=== PATIENT | male | born 1965 | race Caucasian/White ===

== ENCOUNTER 2020-08-02 07:14 | Inpatient (IN) ==
--- NOTE | 2020-08-02 07:28 | Emergency Department Note ---
History of Present Illness General Chief complaint: Hip Pain Stated complaint: FALL/LT HIP INJURY Time Seen by Provider: 08/02/20 07:21 History of Present Illness This is a 54-year-old male that presents to the emergency department via ambulance with complaints of "fall, left hip injury". The patient notes that earlier today around 615am he was ambulating out of his hotel when he notes that he slipped on ice landing on the left hip. He denies striking the head or loss of consciousness. He states that the pain is in the left medial hip region. It is worse with movement. He cannot ambulate secondary to pain. He states that his past medical history is significant for that of appendectomy. No other pe rtinent medical history or allergies. He rates the overall discomfort at this time 03/18. In route he did receive 10 mg of morphine IV and 4 mg of IV Zofran. Patient is in the area for work and is from [place]. Home Medications Medication Instructions Recorded Confirmed Type magnesium oxide 400 mg PO DAILY 08/02/20 08/02/20 History [id number]-9-[id number]-cvwc oil 1 cap PO DAILY 08/02/20 08/02/20 History [[place]-3 (with dpa)] Allergies Allergy/AdvReac Type Severity Reaction Status Date / Time No Known Allergies Allergy Unverified 08/02/20 08:32 Past Med/Surg History Medical History No pertinent past medical history Surgical History History of appendectomy Family History (Updated 08/02/20 @ 10:22 by Wally Holcomb PA-C) Denies family history of Diabetes Coronary heart disease Heart disease Hypertension Social History (Updated 08/02/20 @ 10:21 by Wally Holcomb PA-C) Smoking Status: Never smoker Tobacco Type: Smokeless Tobacco (Dip or Chew) Do You Dip or Chew Tobacco: Yes (1 can q 2-3days); Tobacco Cessation Education Requested by Patient: No Hx Alcohol Use: No Hx Substance Use: No Preferred Language: Nigerien Communication Ability: Effective Certified Massage Therapist Required: No Beliefs That Will Affect Care: None marital status: Current Living Situation: Spouse current occupational status: employed Other Information That Helps Us Care for You: No Feels Safe at Home: Yes Safety Concerns: Feels Safe At This Time Assistive Devices: None Review of Systems A total of 10 systems reviewed and were otherwise negative Physical Exam Vital Signs Vital Signs - 24 hr 08/02/20 07:24 08/02/20 08:46 Temperature 37.1 C Temperature Source Oral Pulse Rate 69 Pulse Rate [Right Finger] 65 Respiratory Rate 20 19 Respiratory Effort / Characteristics Non-Labored Spontaneous Non-Labored Spontaneous Respiratory Depth Normal Normal Blood Pressure 137/69 Blood Pressure [Left Radial Artery] 138/73 Blood Pressure Mean 91 Blood Pressure Mean [Left Radial Artery] 94 Blood Pressure Position Lying Pulse Oximetry 100 98 Oxygen Delivery Method Room Air Room Air Sepsis Recent Fever Within 48 Hours No Sepsis New/Unexplained Change in Mental Status N/A Sepsis Action Taken by Nursing No Action Required VITAL SIGNS - Vital signs and nursing notes were reviewed. Stable and afebrile. GENERAL -54-year-old male appearing his stated age who is in no acute distress. Communicates well with provider and answers questions appropriately. SKIN - Without rashes. No meningeal or petechial rash. HEAD - NC/AT. EYES - PERRL with EOMI bilaterally. Sclera anicteric. EARS - No deformities of external structures noted on gross examination bilaterally. NOSE - Midline and without cyanosis. NECK - Neck with FROM. No nuchal rigidity. LUNGS - Chest wall symmetric without accessory muscle use, intercostals retractions, or central cyanosis. Normal vesicular breath sounds CTA B/L. No wheezes, rales, or rhonchi appreciated. CARDIAC - RRR with S1/S2. No murmur, rubs, or gallops appreciated. EXTREMITIES - No clubbing or peripheral cyanosis. The patient is tender overlying the left greater trochanter and left medial proximal thigh region. No deformity or step-off. +5/5 strength noted in UE/LE bilaterally. NEUROLOGIC - Cranial nerves II through XII grossly intact. Patient is neurovascularly intact in the left lower extremity distal to the injury. Patellar reflexes +2/4. PSYCH - A&O, and cooperates fully with examiner. Pt is very pleasant and interacts well with examiner. Course Administered Medications Sodium Chloride (Nss 1000ml) 1,000 mls @ 250 mls/hr IV .Q4H MICHELLE Stop: 08/02/20 12:59 Last Admin: 08/02/20 08:53 Dose: 250 mls/hr Documented by: [id number] Discontinued Medications Hydromorphone HCl (Hydromorphone Inj 0.5 Mg/0.5 Ml Syr) 0.5 mg IV NOW STA Stop: 08/02/20 07:31 Last Admin: 08/02/20 07:39 Dose: 0.5 mg Documented by: [id number] Hydromorphone HCl (Hydromorphone Inj 0.5 Mg/0.5 Ml Syr) 0.5 mg IV NOW STA Stop: 08/02/20 08:32 Last Admin: 08/02/20 08:38 Dose: 0.5 mg Documented by: [id number] Hydromorphone HCl (Hydromorphone Inj 0.5 Mg/0.5 Ml Syr) 0.5 mg IV Q30M PRN PRN Reason: pain Stop: 08/16/20 08:59 Last Admin: 08/02/20 11:21 Dose: 0.5 mg Documented by: [id number] Admin: 08/02/20 10:38 Dose: 0.5 mg Documented by: [id number] Admin: 08/02/20 10:13 Dose: 0.5 mg Documented by: [id number] Medical Decision Making Laboratory Data Result diagrams: 08/02/20 07:38 08/02/20 07:38 Lab Results 08/02/20 08/02/20 08/02/20 Range/Units 07:38 07:38 07:38 WBC 4.89 (4.8-10.8) K/uL RBC 4.96 (4.7-6.1) M/uL Hgb 14.7 (14.0-18.0) g/dL Hct 42.0 (42-52) % MCV 84.7 (80-100) fL MCH 29.6 (25-34) pg MCHC 35.0 (32-36) g/dL RDW Std Deviation 42.3 (36.4-46.3) fL RDW Coeff of Lyndsay 13.7 (11.5-14.5) % Plt Count 223 (130-400) K/uL MPV 11.4 H (7.4-10.4) fL Immature Gran % (Auto) 0.2 % Neut % (Auto) 61.0 % Lymph % (Auto) 29.0 % [place] % (Auto) 8.4 % Eos % (Auto) 1.4 % Baso % (Auto) 0.0 % Neut # (Auto) 2.98 (1.4-6.5) K/uL Lymph # (Auto) 1.42 (1.2-3.4) K/uL [place] # (Auto) 0.41 (0.11-0.59) K/uL Eos # (Auto) 0.07 (0-0.5) K/uL Baso # (Auto) 0.00 (0-0.2) K/uL Immature Gran # (Auto) 0.01 (0.00-0.02) K/uL PT 10.1 (9.0-12.0) Seconds INR 1.0 (0.9-1.1) APTT 23.1 (21.0-31.0) Seconds PTT Ratio 0.9 Sodium 140 (136-145) mmol/L Potassium 3.4 L (3.5-5.1) mmol/L Chloride 106 (98-107) mmol/L Carbon Dioxide 29 (21-32) mmol/L Anion Gap 5.0 (3-11) BUN 13 (7-18) mg/dl Creatinine 1.12 (0.6-1.4) mg/dl Est Cr Clr Drug Dosing 85.1 ml/min Est GFR ( Amer) 84.7 Est GFR (Non-Af Amer) 73.0 BUN/Creatinine Ratio 11.2 (10-20) Glucose 90 (70-99) mg/dl Calcium 9.5 (8.5-10.1) mg/dl Total Bilirubin 0.4 (0.2-1) mg/dl AST 8 L (15-37) U/L ALT 26 (12-78) U/L Alkaline Phosphatase 70 (45-117) U/L Total Protein 7.3 (6.4-8.2) gm/dl Albumin 3.8 (3.4-5.0) gm/dl Globulin 3.5 (2.5-4.0) gm/dl Albumin/Globulin Ratio 1.1 (0.9-2) COVID-19 Eval Order SARS-CoV-2, RNA, NAAT (NEGATIVE) 08/02/20 08/02/20 Range/Units 09:27 09:27 WBC (4.8-10.8) K/uL RBC (4.7-6.1) M/uL Hgb (14.0-18.0) g/dL Hct (42-52) % MCV (80-100) fL MCH (25-34) pg MCHC (32-36) g/dL RDW Std Deviation (36.4-46.3) fL RDW Coeff of Lyndsay (11.5-14.5) % Plt Count (130-400) K/uL MPV (7.4-10.4) fL Immature Gran % (Auto) % Neut % (Auto) % Lymph % (Auto) % [place] % (Auto) % Eos % (Auto) % Baso % (Auto) % Neut # (Auto) (1.4-6.5) K/uL Lymph # (Auto) (1.2-3.4) K/uL [place] # (Auto) (0.11-0.59) K/uL Eos # (Auto) (0-0.5) K/uL Baso # (Auto) (0-0.2) K/uL Immature Gran # (Auto) (0.00-0.02) K/uL PT (9.0-12.0) Seconds INR (0.9-1.1) APTT (21.0-31.0) Seconds PTT Ratio Sodium (136-145) mmol/L Potassium (3.5-5.1) mmol/L Chloride (98-107) mmol/L Carbon Dioxide (21-32) mmol/L Anion Gap (3-11) BUN (7-18) mg/dl Creatinine (0.6-1.4) mg/dl Est Cr Clr Drug Dosing ml/min Est GFR ( Amer) Est GFR (Non-Af Amer) BUN/Creatinine Ratio (10-20) Glucose (70-99) mg/dl Calcium (8.5-10.1) mg/dl Total Bilirubin (0.2-1) mg/dl AST (15-37) U/L ALT (12-78) U/L Alkaline Phosphatase (45-117) U/L Total Protein (6.4-8.2) gm/dl Albumin (3.4-5.0) gm/dl Globulin (2.5-4.0) gm/dl Albumin/Globulin Ratio (0.9-2) COVID-19 Eval Order Covid19 [facility] SARS-CoV-2, RNA, NAAT NEGATIVE (NEGATIVE) Imaging Data Radiologist's Impression: CT pelvis wo con CT DOSE: 632.94 mGy.cm CLINICAL HISTORY: Left hip pain status post trauma TECHNIQUE: Helical images were acquired in the transverse plane. Sagittal coronal reformatted images were acquired. A dose lowering technique was utilized adhering to the principles of ALARA. COMPARISON STUDY: None. FINDINGS: There is no pelvic ascites. There is no pathologic pelvic lymphadenopathy. There is no evidence of acute diverticulitis. There is no SI joint diastases. There is no symphysis diastases. There is an acute subcapital left hip fracture. IMPRESSION: Acute subcapital left hip fracture. ACT 112: Negative or not required by law. Electronically signed by: Viktor Lugo M.D. 08/02/2020 8:09 AM XR femur LT 2V routine CLINICAL HISTORY: Left leg pain status post trauma COMPARISON: None. DISCUSSION: There is an acute subcapital left hip fracture. There is no dislocation. No additional fractures are visualized. IMPRESSION: Subcapital left hip fracture. ACT 112: Negative or not required by law. Electronically signed by: Viktor Lugo M.D. 08/02/2020 8:32 AM SINGLE VIEW CHEST CLINICAL HISTORY: Preoperative examination. Hip fracture. FINDINGS: 2 AP, portable, supine chest radiographs are obtained. No prior studies are available for comparison at the time of dictation. The examination is mildly degraded by portable technique and patient rotation. The heart is top normal for projection. There are calcified mediastinal and hilar lymph nodes. The lungs and pleural spaces are clear. No pneumothorax is seen. The bony thorax is grossly intact. IMPRESSION: No active disease in the chest. ACT 112: Negative or not required by law. Electronically signed by: Tolu Kearney M.D. 08/02/2020 8:32 AM [facility] Narrative Patient was seen and evaluated as above in room C 11. Review was performed of nursing notes and vital signs. After obtaining a thorough history and physical examination the above work up was performed. Patient presents to us today status post mechanical fall now with left hip pain. On examination he is tender overlying left hip. No other injury identified on exam. He is neurovascularly intact. Options of care were discussed with the patient. IV access established. Labs were drawn. A CT of the pelvis and x-ray of the femur were obtained. The p terrell has an acute subcapital left hip fracture. This is clinically correlated on examination. This is a closed fracture. I discussed the presentation with the orthopedist, Dr. Dc. Plan is for surgical intervention. He will be admitted for further evaluation and management. While here he was given IV Dilaudid for pain. I also began hydration. We will keep him n.p.o. for potential surgical intervention. Please refer to further documentation regarding his stay. While in the department, I personally reevaluated the patient several times and after the pain medication was resting comfortably. Patient was educated upon todays findings. He was educated upon the plan. Patient happy with plan of care. GCS: 15 In the evaluation and treatment of this patient, the following differential diagnoses were considered: Hip Fracture, Hip Dislocation, Greater Trochanteric Bursitis, Musculoskeletal Pain, Lumbar Radiculopathy, among others. Impression & Plan Subcapital fracture of left hip Discharge Plan Visit Data Chief Complaint: Hip Pain Stated Complaint: FALL/LT HIP INJURY ED Provider: José Miguel Bowling ED Midlevel Provider: Hans Sanabria Discharge Problem: Subcapital fracture of left hip Patient Disposition: Admitted As Inpatient Condition: Good Discharge Instructions Interventions: ED Discharge Assessment Last Done: 08/02/20 10:45 Discharge Problem: Subcapital fracture of left hip Qualifiers: Encounter type: initial encounter Fracture type: closed Qualified Code(s): S72 .012A - Unspecified intracapsular fracture of left femur, initial encounter for closed fracture
[2020-08-02] MEDS ORDERED: HYDROmorphone INJ 0.5 MG/0.5 ML SYR IV STA ×2 (07:30→08:31)
[2020-08-02 07:58] LABS: Eosinophils # (auto) 0.07 K/uL (0-0.5); Eosinophils % (auto) 1.4 %; Hemoglobin 14.7 g/dL (14.0-18.0); Immature Granulocytes # (auto) 0.01 K/uL (0.00-0.02); Immature Granulocytes % (auto) 0.2 %; Lymphocytes # (auto) 1.42 K/uL (1.2-3.4); Mean Corpuscular Hemoglobin 29.6 pg (25-34); Mean Corpuscular Volume 84.7 fL (80-100); Mean Platelet Volume 11.4 fL (7.4-10.4); Monocytes # (auto) 0.41 K/uL (0.11-0.59); Monocytes % (auto) 8.4 %; Neutrophils # (auto) 2.98 K/uL (1.4-6.5); Platelet Count 223 K/uL (130-400); RDW Coefficient of Variation 13.7 % (11.5-14.5); RDW Standard Deviation 42.3 fL (36.4-46.3); Red Blood Count 4.96 M/uL (4.7-6.1); White Blood Count 4.89 K/uL (4.8-10.8)
--- NOTE | 2020-08-02 08:10 | CT Scan Report ---
CT pelvis wo con CT DOSE: 632.94 mGy.cm CLINICAL HISTORY: Left hip pain status post trauma TECHNIQUE: Helical images were acquired in the transverse plane. Sagittal coronal reformatted images were acquired. A dose lowering technique was utilized adhering to the principles of ALARA. COMPARISON STUDY: None. FINDINGS: There is no pelvic ascites. There is no pathologic pelvic lymphadenopathy. There is no evidence of acute diverticulitis. There is no SI joint diastases. There is no symphysis diastases. There is an acute subcapital left hip fracture. IMPRESSION: Acute subcapital left hip fracture. ACT 112: Negative or not required by law. Electronically signed by: Viktor Lugo M.D. 08/02/2020 8:09 AM
[2020-08-02 08:24] LABS: Albumin Level 3.8 gm/dl (3.4-5.0); BUN Creatinine Ratio 11.2 (10-20); Calcium 9.5 mg/dl (8.5-10.1); Creatinine Clr Calc Pharmacy 85.1 ml/min; Est GFR (African American) 84.7; Potassium 3.4 mmol/L (3.5-5.1)
[2020-08-02 08:27] LABS: Albumin Globulin Ratio 1.1 (0.9-2); Bilirubin,Total 0.4 mg/dl (0.2-1); Globulin 3.5 gm/dl (2.5-4.0); Total Protein 7.3 gm/dl (6.4-8.2)
--- NOTE | 2020-08-02 08:33 | XRay Report ---
XR femur LT 2V routine CLINICAL HISTORY: Left leg pain status post trauma COMPARISON: None. DISCUSSION: There is an acute subcapital left hip fracture. There is no dislocation. No additional fr actures are visualized. IMPRESSION: Subcapital left hip fracture. ACT 112: Negative or not required by law. Electronically signed by: Viktor Lugo M.D. 08/02/2020 8:32 AM
--- NOTE | 2020-08-02 08:33 | XRay Report ---
SINGLE VIEW CHEST CLINICAL HISTORY: Preoperative examination. Hip fracture. FINDINGS: 2 AP, portable, supine chest radiographs are obtained. No prior studies are available for c omparison at the time of dictation. The examination is mildly degraded by portable technique and casey ent rotation. The heart is top normal for projection. There are calcified mediastinal and hilar lymp h nodes. The lungs and pleural spaces are clear. No pneumothorax is seen. The bony thorax is grossly intact. IMPRESSION: No active disease in the chest. ACT 112: Negative or not required by law. Electronically signed by: Tolu Kearney M.D. 08/02/2020 8:32 AM
[2020-08-02] MEDS ORDERED: SODIUM CHLORIDE 0.9% 1000ML 1,000 ML IV SCH (09:00)
[2020-08-02 09:55] LABS: Partial Thromboplastin Ratio 0.9; Partial Thromboplastin Time 23.1 Seconds (21.0-31.0); Prothrombin Time 10.1 Seconds (9.0-12.0)
[2020-08-02] MEDS: HYDROmorphone INJ 0.5 MG/0.5 ML SYR IV PRN ×3 (10:13→11:21)
--- NOTE | 2020-08-02 10:13 | History & Physical Report ---
Date of Service August 02, 2020 Assessment & Plan (1) Subcapital fracture of left hip: Very healthy 54-year-old white male who we will admit today and undergo surgery of the left hip either this evening or tomorrow to likely be done by Dr. Dc, if not one of his partners. Patient did eat breakfast this morning. Admission orders are done. He is on bedrest. Pain medication as ordered. We will continue with the Dilaudid for breakthrough pain and he will can take oxycodone as needed. Continue with ice to the affected side as needed for pain and swelling. Patient is from [place] and his boss is with him today. They are inquiring about how soon he will be safe to travel back to [place] after his surgery and if any medical arrangements can be arranged for transport back there. History of Present Illness Chief Complaint: Left hip pain x several hours Primary Care Provider: NO PCP 54-year-old white male with no significant past medical history who complains of left hip pain times several hours. He states this morning he left his hotel and slipped on some ice falling and landing on the left hip. He says that this is the worst pain that he is ever experienced. He was unable to get up and was brought to the emergency room via ambulance. Pain is worse with standing and moving and is relieved by rest. He is originally from [place] and is in town on business. He says he supposed to be here for a another week or 2. Dr. Dc was consulted after x-ray revealed a left subcapital hip fracture. Patient denies any chest pain, shortness of breath, or difficulty breathing. No fever, chills, or cough. He denies any knee or lower leg pain. Allergies Allergy/AdvReac Type Severity Reaction Status Date / Time No Known Allergies Allergy Unverified 08/02/20 08:32 Home Medications Medication Instructions Recorded Confirmed Type magnesium oxide 400 mg PO DAILY 08/02/20 08/02/20 History ltluo-7-oiy-rnn-oie-rehb oil 1 cap PO DAILY 08/02/20 08/02/20 History [[place]-3 (with dpa)] Past Med/Surg History Medical History No pertinent past medical history Surgical History History of appendectomy Family History (Updated 08/02/20 @ 10:22 by Wally Holcomb PA-C) Denies family history of Diabetes Coronary heart disease Heart disease Hypertension Social History (Updated 08/02/20 @ 10:21 by Wally Holcomb PA-C) Smoking Status: Never smoker Tobacco Type: Smokeless Tobacco (Dip or Chew) Hx Alcohol Use: No marital status: current occupational status: employed Feels Safe at Home: Yes Review of Systems All systems reviewed & are unremarkable except as noted in HPI & below. Physical Exam Constitutional WD/WN, vitals as above well groomed and comfortable Eyes PERRL, conjunctivae normal, anicteric sclerae ENMT external ear and nose normal, oropharynx normal Neck normal visual inspection and trachea midline Respiratory normal respiratory effort; no respiratory distress and no labored breathing Cardiovascular Rate/Rhythm: regular rate and regular rhythm Gastrointestinal (Abdomen) Inspection/Auscultation: abdomen normal to inspection Percussion/Palpation: abdomen soft; abdomen nontender Musculoskeletal He is nontender to palpation along the left greater trochanter bursa. Left hip is slightly externally rotated. He has sensation to touch grossly intact bilateral lower extremities. He is able to move his left and right leg symmetrically at the foot and ankle without discomfort. Skin no rashes, warm and dry normal turgor Neurologic normal touch/pain/proprioception, moves all extremities and awake Psychiatric A+Ox3, euthymic affect Orientation: cooperative Apperance: appropriately groomed Eye Contact: good eye contact Speech: normal rate/rhythm/volume of speech Insight: good insight Results & Data Results & Data Laboratory Results . Diagnostic Findings . PG Care Time/CCT Total # of Minutes Spent Total Time Spent with Patient: Total time spent is greater than 50% in coordination of care (as documented) at patient's floor/unit and/or counseling patient: Coding Level of Care Code 07016 Initial Inpt Care Lvl 3 (57 - DECISION FOR SURGERY) Diagnoses Subcapital fracture of left hip S72.012A Encounter type: initial encounter Fracture type: closed (1) Subcapital fracture of left hip Encounter type: initial encounter Fracture type: closed Qualified Code(s): S72.012A - Unspecified intracapsular fracture of left femur, initial encounter for closed fracture
[2020-08-02] MEDS ORDERED: oxyCODONE HCL IR 5 MG TAB (IMMEDIATE RELEASE) PO PRN (11:18)
[2020-08-02] MEDS ORDERED: HYDROmorphone INJ 0.5 MG/0.5 ML SYR IV PRN (11:41)
[2020-08-02] MEDS: KETOROLAC 30 MG/ML VIAL IV SCH ×2 (13:07→21:19)
[2020-08-02] MEDS: D5W AND LACTATED RINGERS 1,000 ML IV SCH ×2 (13:11→22:54)
[2020-08-02] MEDS: HYDROmorphone INJ 1 MG/ML SYRINGE IV PRN ×3 (14:08→22:53)
[2020-08-02] MEDS: oxyCODONE HCL IR 5 MG TAB (IMMEDIATE RELEASE) PO PRN ×2 (17:19→21:20)
[2020-08-03] MEDS: HYDROmorphone INJ 1 MG/ML SYRINGE IV PRN ×5 (00:55→22:18)
[2020-08-03] MEDS: KETOROLAC 30 MG/ML VIAL IV SCH ×4 (05:46→23:07)
[2020-08-03] MEDS ORDERED: ceFAZolin 2000MG 2,000 MG/15 ML SYR IV SCH (06:00)
--- NOTE | 2020-08-03 07:00 | Orthopedic Progress Note ---
Date of Service August 03, 2020 Assessment & Plan (1) Subcapital fracture of left hip: I went over the diagnosis and treatment options with him at bedside. I do recommend surgical fixation. I would likely do cannulated screw fixation. He understands the risk, benefits, and alternatives to procedures like to proceed. Questions are answered at bedside today. Time was spent describing the procedure and postoperative expectations. We will likely do the procedure later this afternoon. He is currently n.p.o. Curtis Camara was seen and examined at bedside this morning. Overall he is doing fairly well. His pain is better controlled. He still unable to sit up. He is looking forward to having his hip fixed today. He has no other complaints.. Review of Systems All systems reviewed & are unremarkable except as noted in HPI & below. Physical Exam On physical examination of his hip, his leg lengths are equal. He has signif icant pain with logroll of his left leg. Results & Data Results & Data Laboratory Results . Diagnostic Findings X-rays and CT scan reviewed of the left hip do show a mildly displaced left femoral neck fracture.. PG Care Time/CCT Total # of Minutes Spent Total Time Spent with Patient: Total time spent is greater than 50% in coordination of care (as documented) at patient's floor/unit and/or counseling patient: Coding Level of Care Code 55328 Subseq Hosp Care Lvl 3 (57 - DECISION FOR SURGERY) Diagnoses Subcapital fracture of left hip S72.012A Encounter type: initial encounter Fracture type: closed (1) Subcapital fracture of left hip Encounter type: initial encounter Fracture type: closed Qualified Code(s): S72.012A - Unspecified intracapsular fracture of left femur, initial encounter for closed fracture
[2020-08-03] MEDS: D5W AND LACTATED RINGERS 1,000 ML IV SCH (08:20)
[2020-08-03] MEDS: oxyCODONE HCL IR 5 MG TAB (IMMEDIATE RELEASE) PO PRN ×2 (09:58→19:41)
[2020-08-03] MEDS ORDERED: ONDANSETRON INJ 2 MG/ML 2 ML VIAL IV PRN ×2 (13:08→16:49)
[2020-08-03] MEDS ORDERED: ATROPINE SULFATE 0.1 MG/ML 10ML SYR IV PRN (13:08)
[2020-08-03] MEDS ORDERED: PHENYLEPHRINE 100MCG/ML 5ML SYR IV PRN (13:08)
[2020-08-03] MEDS ORDERED: MEPERIDINE HCL 25 MG/ML CARP/VIAL IV PRN (13:08)
[2020-08-03] MEDS ORDERED: ePHEDrine sulfate 50 MG/ML AMP IV PRN (13:08)
[2020-08-03] MEDS ORDERED: fentaNYL citrate 100 MCG/2 ML VIAL IV PRN (13:08)
[2020-08-03] MEDS ORDERED: LABETALOL HCL IV 5 MG/ML 20ML IV PRN (13:08)
[2020-08-03] MEDS ORDERED: HYDROmorphone INJ 1 MG/ML SYRINGE IV PRN (13:08)
[2020-08-03] MEDS ORDERED: fentaNYL citrate 100 MCG/2 ML VIAL ONE (13:50)
[2020-08-03] MEDS ORDERED: MIDAZOLAM HCL 1 MG/ML 2ML VIAL ONE ×2 (13:50→14:06)
--- NOTE | 2020-08-03 14:06 | Anesthesiology Consultation ---
Date of Service August 03, 2020 Covid 19 negative on 08/02/20 Assessment & Plan (1) Encounter for pre-operative examination: Chart Review Chart Review: Acceptable Risk for Surgery and Patient NOT seen in Pre Admission Testing Consults Requested none History Surgery Operation Date: 08/03/20 14:35 Proposed Procedures p Left Hip DHS Versus Percutaneous Pinning - Kuldeep Dc, DO Height/Weight Height: 5 ft 10 in Weight: 92 kg Allergies Allergy/AdvReac Type Severity Reaction Status Date / Time No Known Allergies Allergy Unverified 08/02/20 08:32 Medications Home Medications Medication Instructions Recorded Confirmed Last Taken magnesium oxide 400 mg PO DAILY 08/02/20 08/02/20 08/01/20 lxvys-0-dfw-hax-ohx-ivkw oil 1 cap PO DAILY 08/02/20 08/02/20 08/02/20 [[place]-3 (with dpa)] Active Medications Generic Name Dose Route Start Last Admin Trade Name Freq PRN Reason Stop Dose Admin Hydromorphone HCl 1 mg 08/02/20 12:41 08/03/20 11:51 Hydromorphone Inj 1 Mg/Ml Syringe IV 08/16/20 11:40 1 mg Q2H PRN Administration pain Protocol Dextrose/Lactated Ringer's 1,000 mls @ 100 mls/hr 08/02/20 12:45 08/03/20 08:20 D5w And Lactated Ringers IV 09/01/20 12:44 100 mls/hr .Q10H MICHELLE Administration Ketorolac Tromethamine 30 mg 08/02/20 13:00 08/03/20 13:11 Ketorolac 30 Mg/Ml Vial IV 08/07/20 12:59 30 mg Q8H MICHELLE Administration Oxycodone HCl 10 mg 08/02/20 12:41 08/03/20 09:58 Oxycodone Hcl Ir 5 Mg Tab (Immediate Release) PO 08/16/20 11:17 10 mg Q4H PRN Administration Pain NPO Date Last Intake of Fluids: 08/02/20 Time Last Intake of Fluids: 21:00 Last Intake of Fluids Comment: sip of water with meds at 1100 Date Last Intake of Solids: 08/02/20 Time Last Intake of Solids: 18:00 Past Medical History Medical History No pertinent past medical history Tobacco chew use Past Family History Family History Denies family history of Diabetes Coronary heart disease Heart disease Hypertension Past Surgical History Surgical History History of appendectomy Social History Smoking Status: Never smoker tobacco type: smokeless tobacco Do You Dip or Chew Tobacco: Yes (1 can q 2-3days) Hx Alcohol Use: No Hx Substance Use: No Physical Exam Vital Signs Last Vital Signs Temp 36.9 C 08/03/20 13:56 Pulse 68 08/03/20 13:56 Resp 18 08/03/20 13:56 BP 148/74 H 08/03/20 13:56 Pulse Ox 98 08/03/20 13:56 Testing Laboratory Results 08/02/20 07:38 08/02/20 07:38 PT 10.1 Seconds (9.0-12.0) 08/02/20 07:38 INR 1.0 (0.9-1.1) 08/02/20 07:38 APTT 23.1 Seconds (21.0-31.0) 08/02/20 07:38 Blood Type B Positive 08/02/20 14:44 Antibody Screen NEGATIVE 08/02/20 14:44 Electrocardiogram Date: 08/03/20 Findings: + NSST changes and + SB @ (57)
[2020-08-03] MEDS ORDERED: BUPIVACAINE 0.5 % 5 MG/1 ML PF 10ML VIAL ONE (14:17)
[2020-08-03] MEDS ORDERED: KETAMINE 50 MG/5 ML SYRINGE ONE (14:18)
[2020-08-03] MEDS ORDERED: PROPOFOL IV EMULSION 10 MG/ML 20 ML VIAL IV ONE (14:57)
[2020-08-03] MEDS ORDERED: ONDANSETRON INJ 2 MG/ML 2 ML VIAL ONE (14:58)
[2020-08-03] MEDS ORDERED: ePHEDrine sulfate 50 MG/ML SYR ONE (14:58)
--- NOTE | 2020-08-03 15:33 | Fluoroscopy Report ---
FL hip LT 2-3V CLINICAL HISTORY: LT HIP DHS VS PERCUTANEOUS PINNING. Left hip fracture. COMPARISON STUDY: None. FLUOROSCOPY TIME: 1 minute and 12 seconds. FINDINGS: 2 fluoroscopic spot images of the left hip demonstrate internal fixation of the left femora l neck fracture with 3 cannulated screws. The hardware is intact. The alignment is near-anatomic. IMPRESSION: Fluoroscopy provided for internal fixation of a left femoral neck fracture. ACT 112: Negative or not required by law. Electronically signed by: Tarun Dominguez M.D. 08/03/2020 3:31 PM
--- NOTE | 2020-08-03 15:45 | Operative Report ---
PG Post Operative Report Pre & Post Diagnosis Operation Date: 08/03/20 14:35 Pre-Op Diagnosis: LEFT SUBCAPITAL HIP FRACTURE Post-Op Diagnosis: LEFT SUBCAPITAL HIP FRACTURE I identified the patient and participated in the time-out.: Yes Procedure Operation Date: 08/03/20 14:35 Actual Procedures p Left Hip Percutaneous Pinning(Left) - Kuldeep Dc DO Surgeon Kuldeep Dc DO Director Of Business Applications Kuldeep Medrano PAC Estimated Blood Loss 50 Findings Consistent with Post-Op Diagnosis Specimens None Complications none Disposition Disposition: Recovery Room Indications Hoa is a pleasant 54-year-old male who stepped out of his hotel room yesterday and slipped on the ice. He fell directly onto his left hip. He suffered a minimally displaced subcapital hip fracture. Orthopedics admitted him to the hospital. After discussions at bedside, he consented to proceed with a percutaneous screw fixation of his left hip. Description of Procedure On August 03, 2020 Hoa was brought down from his hospital room to the preoperative holding area. The operative extremity was then fine signed. He was given a preoperative antibiotic. He was taken back to the operating room and given a spinal anesthetic. He was then put on the fracture table. The left leg was then brought out to traction. The left hip was then prepped and draped in sterile fashion. A timeout was done. The patient and the operative ext remity was properly identified. Fluoroscopy was used to ensure anatomic reduction of the hip. A lateral incision was made. Dissection was taken down through the fascia. A guidepin was then placed from the level of the lesser trochanter up the inferior cortex of the femoral neck into the femoral head. Appropriate placement was checked on orthogonal fluoroscopic images. A guidepin was then placed along the posterior cortex more superiorly in the head and another pin was placed along the anterior cortex more superior in the head. This gave an inverted triangle. The guidepins were then measured. The lateral cortex was then drilled. Synthes 7.3 mm cannulated screws were then placed. Hip partially-threaded screw was placed posteriorly and tightened. A partially threaded screw was then placed anteriorly and tightened. This gave good compression to the fracture. A fully threaded screw was placed inferiorly as a buttress screw. Final fluoroscopic images were taken. The wound was then irrigated. The fascia was closed with #1 Vicryl. Skin was closed with 2-0 Vicryl and jonatan. He was then placed in a soft dressing. He was then transferred to a hospital bed and taken to the postanesthesia care unit in stable condition. He tolerated the procedure well. Kuldeep Medrano PA-C, was present for the entire procedure. He was critical for patient positioning, prepping, draping, retraction exposure, wound closure and application of sterile dressing. I attest to the content of the Intraoperative Record and any orders documented therein. Any exceptions are noted below.
--- NOTE | 2020-08-03 16:06 | Anesthesiology Progress Note ---
Date of Service August 03, 2020 Anesthesia Post Procedure Vital Signs Vital Signs: Temp Pulse Pulse Pulse Pulse Resp BP 08/03/20 16:00 61 18 08/03/20 15:50 64 16 08/03/20 15:40 65 14 08/03/20 15:30 36.3 C L 78 16 08/03/20 13:56 36.9 C 68 18 148/74 H 08/03/20 08:00 36.9 C 57 L 18 117/70 08/02/20 22:10 36.8 C 61 18 111/63 08/02/20 20:00 BP Pulse Ox Pulse Ox 08/03/20 16:00 125/68 95 08/03/20 15:50 132/71 94 08/03/20 15:40 129/70 94 08/03/20 15:30 135/65 97 08/03/20 13:56 98 08/03/20 08:00 94 08/02/20 22:10 93 08/02/20 20:00 95 Pain Intensity Left Head: Pain Intensity: 0 Left Hip: Pain Intensity: 0 Transfer of Care Handoff Completed per policy Notes Mental Status: alert / awake / arousable Patient Amnestic to Procedure: Yes Nausea / Vomiting: adequately controlled Pain: adequately controlled Airway Patency, RR, SpO2: stable & adequate BP & HR: stable & adequate Hydration State: stable & adequate Neuraxial Anesthesia: was administered and sensory block is resolving Anesthetic Complications: no major complications apparent and Pt Satisfied with anesthetic care
--- NOTE | 2020-08-03 16:17 | XRay Report ---
XR hip 1V LT w pelvis CLINICAL HISTORY: IN PACU - A/P PELVIS and LATERAL HIP . Postop left hip fracture. COMPARISON STUDY: None. FINDINGS: Status post internal fixation of a left femoral neck fracture with 3 cannulated screws. The hardware appears intact. Skin jonatan are in place. The alignment is near-anatomic. IMPRESSION: Status post internal fixation of a left femoral neck fracture. ACT 112: Negative or not required by law. Electronically signed by: Tarun Dominguez M.D. 08/03/2020 4:15 PM
[2020-08-03] MEDS ORDERED: NALOXONE HCL 0.4 MG/1 ML VIAL/CARP IV PRN (16:49)
[2020-08-03] MEDS ORDERED: METOCLOPRAMIDE HCL INJ 5 MG/ML 2 ML VIAL IV PRN (16:49)
[2020-08-03] MEDS ORDERED: bisacodyL 10 MG SUPP PR PRN (16:49)
[2020-08-03] MEDS ORDERED: MAGNESIUM HYDROXIDE SUSP 30 ML UDC PO PRN (16:49)
--- NOTE | 2020-08-03 16:57 | Electrocardiogram Report ---
Test Reason : Blood Pressure : / mmHG Vent. Rate : 057 BPM Atrial Rate : 057 BPM P-R Int : 174 ms QRS Dur : 092 ms QT Int : 414 ms P-R-T Axes : 040 072 056 degrees QTc Int : 402 ms Sinus bradycardia Nonspecific T wave abnormality Poor R wave progression, consider anterior NH vs. lead placement vs. LVH Abnormal ECG No previous ECGs available Confirmed by Krzysztof Barrios ([id number]) on 08/03/2020 4:56:40 PM Referred By: REFERRED SELF Confirmed By:Octavio Barrios
[2020-08-03] MEDS: RIVAROXABAN 10 MG TABLET PO SCH (17:55)
[2020-08-03] MEDS: SODIUM CHLORIDE 0.9% 1000ML 1,000 ML IV SCH (17:55)
[2020-08-03] MEDS: DOCUSATE SODIUM 100 MG CAP PO SCH (19:42)
[2020-08-03] MEDS: SENNA 8.6 MG TAB PO SCH (19:43)
[2020-08-03] MEDS: ACETAMINOPHEN 500 MG TAB PO SCH (21:01)
[2020-08-03] MEDS: ceFAZolin 2000MG 2,000 MG/15 ML SYR IV SCH (21:05)
[2020-08-04] MEDS: HYDROmorphone INJ 1 MG/ML SYRINGE IV PRN ×4 (00:07→09:12)
[2020-08-04] MEDS: oxyCODONE HCL IR 5 MG TAB (IMMEDIATE RELEASE) PO PRN ×3 (00:42→20:39)
[2020-08-04] MEDS: SODIUM CHLORIDE 0.9% 1000ML 1,000 ML IV SCH ×2 (04:08→13:13)
[2020-08-04] MEDS: KETOROLAC 30 MG/ML VIAL IV SCH ×4 (05:04→23:52)
[2020-08-04] MEDS: ACETAMINOPHEN 500 MG TAB PO SCH ×3 (05:05→22:19)
[2020-08-04] MEDS: ceFAZolin 2000MG 2,000 MG/15 ML SYR IV SCH (05:52)
[2020-08-04 06:29] LABS: Basophils # (auto) 0.01 K/uL (0-0.2); Basophils % (auto) 0.2 %; Eosinophils # (auto) 0.11 K/uL (0-0.5); Eosinophils % (auto) 1.8 %; Hematocrit (blood only) 36.3 % (42-52); Hemoglobin 12.4 g/dL (14.0-18.0); Lymphocytes # (auto) 1.12 K/uL (1.2-3.4); Lymphocytes % (auto) 18.5 %; Mean Corpuscular Hgb Conc 34.2 g/dL (32-36); Mean Corpuscular Volume 84.8 fL (80-100); Mean Platelet Volume 10.9 fL (7.4-10.4); Monocytes # (auto) 0.62 K/uL (0.11-0.59); Monocytes % (auto) 10.2 %; Neutrophils % (auto) 69.3 %; Platelet Count 189 K/uL (130-400); RDW Coefficient of Variation 13.8 % (11.5-14.5); RDW Standard Deviation 42.8 fL (36.4-46.3); Red Blood Count 4.28 M/uL (4.7-6.1); White Blood Count 6.06 K/uL (4.8-10.8)
[2020-08-04 06:56] LABS: BUN Creatinine Ratio 8.3 (10-20); Calcium 8.5 mg/dl (8.5-10.1); Creatinine Clr Calc Pharmacy 89.6 ml/min; Est GFR (African American) 91.5; Potassium 3.8 mmol/L (3.5-5.1)
[2020-08-04] MEDS ORDERED: dexAMETHasone 4 MG TAB PO SCH (08:00)
[2020-08-04] MEDS: MAGNESIUM OXIDE 400 MG TAB PO SCH (08:53)
[2020-08-04] MEDS: MULTIVITAMIN TAB PO SCH (08:54)
[2020-08-04] MEDS: OMEGA-3 (PURIFIED FISH OIL) 1 GM CAP PO SCH (08:55)
[2020-08-04] MEDS: DOCUSATE SODIUM 100 MG CAP PO SCH ×2 (10:07→20:39)
--- NOTE | 2020-08-04 15:46 | Orthopedic Progress Note ---
Date of Service August 04, 2020 Assessment & Plan (1) Subcapital fracture of left hip: Overall is doing very well. Is not having too much pain in the left hip. He has been participating well with physical therapy. He is on Xarelto for DVT prophylaxis. We will keep him overnight tonight and discharge him to [facility] morning. Curtis Nolen was seen and examined at bedside this morning. Overall is doing very well. Is not having too much pain in the left hip. He participated very well with physical therapy earlier today. He has been compliant with the partial weightbearing on his left leg. He has no complaints.. Review of Systems All systems reviewed & are unremarkable except as noted in HPI & below. Physical Exam Physical examination of the left hip shows the dressing to have a little bit of drainage but not much. His leg lengths are equal. He does not have too much pain with logroll of his left hip.. Results & Data Results & Data Laboratory Results . Diagnostic Findings Postoperative x-rays of the left hip show the hardware to be in anatomic alignment.. PG Care Time/CCT Total # of Minutes Spent Total Time Spent with Patient: Total time spent is greater than 50% in coordination of care (as documented) at patient's floor/unit and/or counseling patient: Coding Level of Care Code 37210 Post Operative Follow-Up Diagnoses Subcapital fracture of left hip S72.012A Encounter type: initial encounter Fracture type: closed (1) Subcapital fracture of left hip Encounter type: initial encounter Fracture type: closed Qualified Code(s): S72.012A - Unspecified intracapsular fracture of left femur, initial encounter for closed fracture
[2020-08-04] MEDS: RIVAROXABAN 10 MG TABLET PO SCH (18:05)
[2020-08-04] MEDS: SENNA 8.6 MG TAB PO SCH (20:39)
[2020-08-04] MEDS ORDERED: ZOLPIDEM TARTRATE 10 MG TAB PO ONE (21:08)
[2020-08-05] MEDS: ACETAMINOPHEN 500 MG TAB PO SCH (05:50)
[2020-08-05] MEDS: KETOROLAC 30 MG/ML VIAL IV SCH (05:50)
--- NOTE | 2020-08-05 08:07 | Orthopedic Progress Note ---
Date of Service August 05, 2020 Assessment & Plan (1) Subcapital fracture of left hip: Overall is doing very well. Is not having too much pain in the hip. He is on Xarelto for DVT prophylaxis. He will be seen by physical therapy again today for ambulation. He can be discharged to [facility] later today. He then plans to travel back to [place] after a brief stay at [facility]. He will follow-up with a physician in [place] about removing the jonatan. Curtis Camara was seen and examined at bedside this morning. Overall he is doing well. Is having little soreness in the hip but is not too bad. He has been participat ing well with physical therapy. He has no new complaints.. Review of Systems All systems reviewed & are unremarkable except as noted in HPI & below. Physical Exam On physical examination of the left hip, the dressing has been changed. There is a clean and dry dressing on it at this time. His leg lengths are equal. He has active dorsiflexion plantarflexion of his left ankle.. Results & Data Results & Data Laboratory Results . Diagnostic Findings . PG Care Time/CCT Total # of Minutes Spent Total Time Spent with Patient: Total time spent is greater than 50% in coordination of care (as documented) at patient's floor/unit and/or counseling patient: Coding Level of Care Code 00365 Post Operative Follow-Up Diagnoses Subcapital fracture of left hip S72.012A Encounter type: initial encounter Fracture type: closed (1) Subcapital fracture of left hip Encounter type: initial encounter Fracture type: closed Qualified Code(s): S72.012A - Unspecified intracapsular fracture of left femur, initial encounter for closed fracture
--- NOTE | 2020-08-05 08:09 | Discharge Summary ---
Date of Service August 05, 2020 Admission HPI (Per Admitting) 54-year-old white male with no significant past medical history who complains of left hip pain times several hours. He states this morning he left his hotel and slipped on some ice falling and landing on the left hip. He says that this is the worst pain that he is ever experienced. He was unable to get up and was brought to the emergency room via ambulance. Pain is worse with standing and moving and is relieved by rest. He is originally from [place] and is in town on business. He says he supposed to be here for a another week or 2. Dr. Dc was consulted after x-ray revealed a left subcapital hip fracture. Patient denies any chest pain, shortness of breath, or difficulty breathing. No fever, chills, or cough. He denies any knee or lower leg pain. Admission Exam (Per Admitting) . Principal Diagnosis Same as "Discharge Diagnosis" noted below under Discharge Instructions. Discharge Exam On physical examination of the left hip, the dressing has been changed. There is a clean and dry dressing on it at this time. His leg lengths are equal. He has active dorsiflexion plantarflexion of his left ankle.. Discharge Data Consultations 08/04/20 08:00 Consult Case Management - Discharge Planning Routine Procedures Performed Operation Date: 08/03/20 14:35 Actual Procedures p Left Hip Percutaneous Pinning(Left) - Kuldeep Dc DO Ordered Studies 08/02/20 07:30 CT pelvis wo con Stat 08/03/20 14:35 FL fluoroscopy <1hr Routine FL hip LT 2-3V Routine Hospital Course (1) Subcapital fracture of left hip: On August 02, 2020 Tamanna slipped and fell and sustained a left femoral neck fracture. He came to the hospital and was admitted to the orthopedic service. After consultation at bedside, he elected to proceed with operative fixation of his left hip. The following day he was taken to the operating room. He underwent percutaneous screw fixation of his left hip. He was then started on Xarelto for DVT prophylaxis and transferred to the general orthopedic floors. His hospital course was uneventful. On postop day #1 his H&H was stable and his pain was well controlled. He was able to participate well with physical therapy and was compliant with his partial weightbearing restrictions. On postop day #2 he continued to do well. His pain was controlled. He was then discharged to [facility]. He will likely be traveling back to [place] within a week. He will follow-up with a physician in his home town for staple removal. Encounter type: initial encounter Fracture type: closed Qualified Code(s): S72.012A - Unspecified intracapsular fracture of left femur, initial encounter for closed fracture PG Care Time/CCT Total # of Minutes Spent Total Time Spent with Patient: Total time spent is greater than 50% in coordination of care (as documented) at patient's floor/unit and/or counseling patient: Discharge Plan Discharge Items Patient Disposition: Transfer Inpatient Rehab Fac Reason For Visit: LEFT SUBCAPITAL HIP FRACTURE Discharge Diagnosis: Left hip fracture Condition on Discharge: Good Activity: As commented below Non-emergency contact: Surgeon Call non-emergency contact if: your wound has increased redness and your wound has increased drainage Follow-up/Referrals: PCP,NO [Primary Care Provider] - Diet: Regular Addtl Attending Provider Instructions: ORTHOPEDIC INSTRUCTIONS Activity Recommendations: 50% partial weightbearing on the left hip for 6 weeks. Use a walker for ambulation. Medications: Xarelto 10 mg daily for 6 weeks for DVT prophylaxis. Oxycodone 5 mg every 4 hours as needed for pain. Dressing Care: Jonatan can be open to air as long as the incisions are not draining. If the incisions are draining or if the jonatan are getting caught on your clothes then please cover the jonatan with dry gauze. Change the dressings as necessary to keep the incision as dry as possible Showering: You may shower 5 days from the day of surgery as long as the incisions are not draining. Do not soak the incision. Let soapy water run over the jonatan and pat them dry. Things To Watch For: 1. Drainage from the incision site that occurs more than one week after your surgery. 2. Increased redness at the incision site. 3. Fever above 102 degrees Fahrenheit. 4. Unusual chest pain or shortness of breath. 5. Call [facility] at with any of the above problems Follow-Up Visit: Follow-up with a local physician 2-3 weeks after your day of surgery. They will remove your jonatan and answer any questions. If you have any additional questions or concerns, please contact Dr. Dc If you have any questions call Pending Studies at Discharge: No Stand-Alone Forms: My [facility] Skilled Items Patient informed of condition?: Yes DNR: No Discharge Level of Care: Acute rehab Communicable Disease: No Discharge Prognosis: Improving Lines: None Urinary Catheter: No Medications and DC Order Prescriptions: New Xarelto 10 mg Tablet 10 mg PO DAILY@1800 Qty: 40 RF: 0 oxycodone 5 mg Tablet 5 mg PO Q4H PRN (Reason: pain) Qty: 60 RF: 0 Continued Sidell-3 (with dpa) 1,050-1,200 mg Capsule 1 cap PO DAILY RF: 0 magnesium oxide 400 mg magnesium Tablet 400 mg PO DAILY RF: 0 Discharge Orders: Discharge Order (Routine); Ordered 08/05/20 Ordered By: Kuldeep Dc Admission Data Admit Date/Time: 08/02/20 10:07 Attending Provider: Kuldeep Dc Admit Provider: Kuldeep Dc Primary Care Provider: PCP,NO [facility]
[2020-08-05] MEDS: MULTIVITAMIN TAB PO SCH (09:21)
[2020-08-05] MEDS: DOCUSATE SODIUM 100 MG CAP PO SCH (09:21)
[2020-08-05] MEDS: MAGNESIUM OXIDE 400 MG TAB PO SCH (09:21)
[2020-08-05] MEDS: OMEGA-3 (PURIFIED FISH OIL) 1 GM CAP PO SCH (09:21)
== END 2020-08-05 12:21 | DRG 482 ==
LOC: ED 07:14 → 3N 10:07